=== PATIENT | male | born 1955 | race Caucasian/White ===

== ENCOUNTER 2016-09-02 21:35 | Emergency (ER) | payer BC ==
--- NOTE | 2016-09-02 22:07 | ERNOTE ---
Neuro HPI ER Record Date of Service: 09/02/16 Time Seen by Provider: 09/02/16 21:43 Source: family Immunizations: IMMUNIZATION HX Immunizations Up to Date Yes History of Influenza Vaccine No Hx Pneumococcal Vaccination Yes Allergies/Adverse Reactions: Allergies Allergy/AdvReac Type Severity Reaction Status Date / Time No Known Allergies Allergy Unverified 08/23/14 04:41 Home Medications: HOME MEDICATIONS Furosemide [Lasix] 40 mg PO DAILY 08/23/14 [Last Taken Unknown] Propranolol HCl [Inderal] 20 mg PO BID 08/23/14 [Last Taken Unknown] Spironolactone [Aldactone] 50 mg PO DAILY 08/23/14 [Last Taken Unknown] - History of Present Illness Narrative: This patient has a history of hepatic failure and was noted by his spouse today to be more agitated and having altered mental status. Spouse contacted the EMS and had EMS bring the patient in. In the process after the EMS arrived patient' s residence patient felt to his left knee also denies any fevers chills cough congestion. All these changes in mental status happened today. Patient's spouse is not sure if the patient has taken his lactulose. Review of Systems - Review of Systems Constitutional: Present: other - altered mental status EYE: Present: no symptoms reported ENT: Present: no symptoms reported Respiratory: Present: no symptoms reported Cardiology: Present: no symptoms reported Gastrointestinal/Abdominal: Present: no symptoms reported Genitourinary: Present: no symptoms reported Musculoskeletal: Present: no symptoms reported Neurological: Present: other - Pt is agitated and repetitive. He is not febrile. He states he wants to leave. He has no focal neurological deficits - Patient's Past Medical History Patient History - Medical: Other Patient History - Cancer: No Hx of Cancer Patient History - Surgical Procedures: Other - Social History Living Situations: significant other Smoking Status: Former smoker Alcohol Use: none Drug Use: none Physical Exam - Physical Exam General Appearance: Present: wd/wn, alert, no apparent distress Ears, Nose, Throat: Present: normal ENT inspection, hearing grossly normal Neck: Present: normal inspection, nontender Respiratory: Present: no respiratory distress, normal breath sounds, no accessory muscle use, chest nontender, lungs clear Cardiovascular/Chest: Present: regular rate, rhythm, no murmur, normal peripheral pulses Gastrointestinal/Abdominal: Present: normal bowel sounds, nontender, nondistended, soft, no organomegaly Back Exam: Present: normal inspection, normal range of motion, no CVA tenderness Extremity Exam: Present: other - is missing a left large toe and 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 There is ecchymoses all over his upper arms and on his legs. Neurological Exam: Present: other - patient is awake however he is disoriented and repetitive and altered and agitated. ED Progress - Vital Signs Vital Signs: Vital Signs 09/02/16 21:44 Temperature 36.1 C L Pulse Rate 96 Respiratory 19 Rate Blood Pressure 146/42 O2 Sat by Pulse 100 Oximetry - Progress/Reassessment Chief Complaint: Altered Mental Status Departure Clinical Impression: Sepsis - Departure Disposition: [facility] Condition: Fair
[2016-09-02 22:35] LABS: Hematocrit 36.2 % (42.0-52.0); Hemoglobin 12.6 gm/dL (13.5-18.0); Mean Cell Volume 103.1 fl (78-100); Mean Corpuscular Hemoglobin 35.9 pg (27-31); Mean Corpuscular Hgb Conc 34.8 g/dl (32-36); Mean Platelet Volume 9.2 fl (6.0-9.5); Platelet Count 145 K/mm3 (150-450); Red Blood Count 3.51 M/mm3 (4.7-6.0); Red Cell Distribution Width 16.1 % (11.5-14.0); White Blood Count 16.2 K/mm3 (4.0-10.5)
[2016-09-02 22:45] LABS: Urine Bilirubin Negative (NEGATIVE); Urine Blood Negative /ul (NEGATIVE); Urine Ketone Negative (NEGATIVE); Urine Nitrite Negative (NEGATIVE); Urine Protein Negative (NEGATIVE); Urine Urobilinogen Normal (NORMAL)
[2016-09-02 22:46] LABS: Albumin * 2.8 gm/dl (3.4-5.0); Anion Gap 9.5 mmol/L (6.8-13.8); BUN/Creatinine Ratio 28.7 (9.0-21.6); Bilirubin, Total 4.1 mg/dL (0.0-1.1); Ca. Corrected For Albumin 9.9 mg/dL (8.4-10.2); Calcium * 9.3 mg/dL (7.9-10.9); Carbon Dioxide 25.2 mmol/L (24-32.6); Potassium 4.7 mmol/L (3.4-4.6); Total Protein 6.1 gm/dL (6.2-8.2)
[2016-09-02 22:49] LABS: Total Cells Counted 100
[2016-09-02 23:00] LABS: Urine Appearance Clear; Urine Bacteria None Seen; Urine Coarse Granular Cast 0-5 /LPF; Urine Color Yellow; Urine Hyaline Cast 0-5 /LPF; Urine Other Crystal Few - 1+ /hpf; Urine RBC None Seen /hpf (0-5); Urine WBC None Seen /hpf (0-5)
[2016-09-02 23:07] LABS: Atypical (Reactive) Lymph 2 % (0-2); Eosinophil 1 % (0-3); Immature Granulocyte 1 (0-1); Lymphocyte 6 % (20-51); Monocyte 16 % (0-9); Neutrophil 74 % (42-75)
[2016-09-02] MEDS ORDERED: NORMAL SALINE 1,000 ML IV ONE (23:08)
[2016-09-02 23:09] LABS: Anisocytosis 1+; Macrocytosis 1+; Platelet Estimate Decreased (NORMAL); Poikilocytosis 1+
[2016-09-02 23:10] LABS: Ovalocytes 1+; Schistocytes Trace; Target Cells 1+
[2016-09-02 23:21] LABS: Cocaine Ur Negative (NEGATIVE); Urine Barbiturate Negative (NEGATIVE); Urine Benzodiazepines Negative (NEGATIVE); Urine Opiates Negative (NEGATIVE); Urine PCP Negative (NEGATIVE); Urine THC Negative (NEGATIVE)
[2016-09-02] MEDS ORDERED: LEVOFLOXACIN/D5W 500 MG/100 ML BAG IV SCH (23:30)
[2016-09-03 02:47] VITALS: BP 166/64
== END 2016-09-02 23:50 | disposition short-term general hospital (02) ==
LOC: ER 21:35
DX: A41.9 Sepsis, unspecified organism (principal); Z87.891 Personal history of nicotine dependence; R41.82 Altered mental status, unspecified
CPT/HCPCS: 36415; 70450; 71010; 73560; 80053; 81001; 82140; 83605; 85025; 87040; 87086; 96365; 99283; G0479